=== PATIENT | male | born 1980 | race Caucasian/White ===

== ENCOUNTER 2017-11-23 19:22 | Emergency (ER) | payer BC ==
[2017-11-23] MEDS ORDERED: SODIUM CHLORIDE 0.9% 1,000 ML IV STA (20:20)
--- NOTE | 2017-11-23 20:20 | ED ---
Chest Pain HPI - General Chief Complaint: Chest Pain Stated Complaint: chest pain Time Seen by Provider: 11/23/17 19:53 Source: patient, RN notes reviewed, old records reviewed Mode of arrival: ambulatory Limitations: no limitations - History of Present Illness Initial Comments: 36-year-old male says wrist Damaris complaint of 2 weeks of having episodes of a strong heartbeat. Patient reports that he'll be sending the onset of feeling very strong heartbeat. He states that he has no specific chest pain. Denies any dizziness or lightheadedness. Denies any shortness of breath. He states that he may have had this happen past but cannot ever remember being more frequent. He reports that it is not exacerbated with ambulating.Patient denies any recent fever, chills, shortness of breath, chest pain, back pain, abdominal pain, nausea vomiting, numbness or tingling, dysuria or hematuria, constipation or diarrhea, headaches or visual changes, or any other current symptoms. Patient has a history of heart disease. Patient reports that his father has had a history of heart disease. He does have history of high blood pressure. - Related Data Home Medications Medication Instructions Recorded Confirmed Fluticasone Nasal [place] [Flonase 2 spr EA NOSTRIL DAILY PRN 11/23/17 11/23/17 Nasal [place]] Metoprolol/Hydrochlorothiazide 1 tab PO BID 11/23/17 11/23/17 [Lopressor Hct 50-25 mg Tab] Mometasone/Formoterol [Dulera 200 2 puff INHALATION RT-BID 11/23/17 11/23/17 Mcg/5 Mcg Inhaler] buPROPion XL [Wellbutrin Xl] 150 mg PO DAILY 11/23/17 11/23/17 rOPINIRole HCL [Requip] 0.25 mg PO HS 11/23/17 11/23/17 Allergies Allergy/AdvReac Type Severity Reaction Status Date / Time No Known Allergies Allergy Verified 11/23/17 20:30 Review of Systems ROS Statement: Those systems with pertinent positive or pertinent negative responses have been documented in the HPI. ROS Other: All systems not noted in ROS Statement are negative. EKG Findings - EKG Comments: EKG Findings:: EKGs shows normal sinus rhythm. Nonspecific T-wave changes. Ventricular rate of 90 bpm. FL interval 140 ms. QRS duration 90 ms. QT QTc is 364/445 ms. No evidence of ST elevation or T-wave inversion. Past Medical History Past Medical History: Asthma History of Any Multi-Drug Resistant Organisms: None Reported Past Surgical History: No Surgical Hx Reported Past Psychological History: No Psychological Hx Reported Smoking Status: Former smoker Past Alcohol Use History: Rare Past Drug Use History: None Reported General Exam - General Exam Comments Initial Comments: well-appearing alert and oriented 36-year-old male. No acute distress. Limitations: no limitations General appearance: alert, in no apparent distress Head exam: Present: atraumatic, normocephalic, normal inspection Eye exam: Present: normal appearance, PERRL, EOMI. Absent: scleral icterus, conjunctival injection, periorbital swelling ENT exam: Present: normal exam, mucous membranes moist Neck exam: Present: normal inspection. Absent: tenderness, meningismus, lymphadenopathy Respiratory exam: Present: normal lung sounds bilaterally. Absent: respiratory distress, wheezes, rales, rhonchi, stridor Cardiovascular Exam: Present: regular rate, normal rhythm, normal heart sounds. Absent: systolic murmur, diastolic murmur, rubs, gallop, clicks GI/Abdominal exam: Present: soft, normal bowel sounds. Absent: distended, tenderness, guarding, rebound, rigid Extremities exam: Present: normal inspection, full ROM, normal capillary refill. Absent: tenderness, pedal edema, joint swelling, calf tenderness Back exam: Present: normal inspection Neurological exam: Present: alert, oriented X3, CN II-XII intact Psychiatric exam: Present: normal affect, normal mood Course Vital Signs 11/23/17 11/23/17 11/23/17 19:45 20:14 22:21 Temperature 97.8 F 98.2 F Pulse Rate 90 82 Pulse Rate [ 88 Brim Raiser ] Respiratory 16 18 Rate Blood Pressure 136/76 117/64 O2 Sat by Pulse 97 96 Oximetry Chest Pain [facility] Patient is a 36 -year-old male presents to determine stay chief complaint of episodes of strong heartbeat. While patient was on the monitor he could point out that PVCs when he feels like he was having the symptoms. He had a PVC approximately one every 5 minutes. There is no specific pattern to them. Patient's troponin is negative. Chest x-rays normal. EKG is normal this time. Discussed falling up with primary care provider regards to PVCs. Discussed possibility of a Holter monitor. Discussed return parameters he has any chest pain or shortness of breath he needs to return. Patient is history plan will comply. Return parameters were discussed. 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 Patient should return to the emergency department if any alarming signs or symptoms occur. Referrals: Alfred Kurtz DO [Primary Care Provider] - 1-2 days Time of Disposition: 22:17
[2017-11-23 20:35] LABS: Basophils # (A) 0.1 k/uL (0-0.2); Basophils % (A) 1 %; Eosinophils # (A) 0.3 k/uL (0-0.7); Eosinophils % (A) 2 %; HCT 43.1 % (39.0-53.0); HGB 13.8 gm/dL (13.0-17.5); Lymphocytes # (A) 2.2 k/uL (1.0-4.8); Lymphocytes % (A) 20 %; MCH 25.5 pg (25.0-35.0); MCHC 31.9 g/dL (31.0-37.0); MCV 79.7 fL (80.0-100.0); Mean Platelet Volume 7.7; Monocytes # (A) 0.8 k/uL (0-1.0); Monocytes % (A) 7 %; Neutrophils # (A) 7.7 k/uL (1.3-7.7); Neutrophils % (A) 68 %; Platelet Count 321 k/uL (150-450); RBC 5.41 m/uL (4.30-5.90); RDW 15.2 % (11.5-15.5); WBC 11.3 k/uL (3.8-10.6)
[2017-11-23 20:44] LABS: Partial Thromboplastin Time 25.8 sec (22.0-30.0); Prothrombin Time 9.9 sec (9.0-12.0)
[2017-11-23 20:46] LABS: ALT 27 U/L (21-72); AST 25 U/L (17-59); Albumin 4.3 g/dL (3.5-5.0); Alkaline Phosphatase 68 U/L (38-126); Anion Gap 15 mmol/L; Blood Urea Nitrogen 21 mg/dL (9-20); Calcium 10.4 mg/dL (8.4-10.2); Carbon Dioxide 28 mmol/L (22-30); Chloride 98 mmol/L (98-107); Glucose 137 mg/dL (74-99); Magnesium 1.9 mg/dL (1.6-2.3); Potassium 3.5 mmol/L (3.5-5.1); Sodium 141 mmol/L (137-145); Total Bilirubin 0.3 mg/dL (0.2-1.3); Total Protein 7.7 g/dL (6.3-8.2)
--- NOTE | 2017-11-23 20:53 | XR ---
EXAMINATION: XR chest 2V DATE AND TIME: 11/23/2017 8:44 PM ORDERING PROVIDER: Kenya Levin CLINICAL INDICATION: Chest Pain TECHNIQUE: PA and lateral COMPARISON: 07/07/2016 DESCRIPTION: The lungs are clear. The pleural spaces are negative. The cardiac silhouette is not enlarged. The mediastinal and pleural silhouettes are unremarkable. The skeletal structures are intact without focal findings. The soft tissues are unremarkable. IMPRESSION: NO ACUTE PROCESS.
[2017-11-23 20:55] LABS: Creatine Kinase 98 U/L (55-170)
[2017-11-23 21:08] LABS: Creatine Kinase MB 0.4 ng/mL (0.0-2.4); Troponin I <0.012 ng/mL (0.000-0.034)
[2017-11-23 22:23] VITALS: BP 117/64; PULSE 82; RESP 18; TEMP 98.2
== END 2017-11-23 22:27 | disposition home or self-care (01) ==
LOC: EC 19:22
DX: I49.3 Ventricular premature depolarization (principal); J45.909 Unspecified asthma, uncomplicated; Z79.51 Long term (current) use of inhaled steroids; Z79.899 Other long term (current) drug therapy; Z87.891 Personal history of nicotine dependence
CPT/HCPCS: 36415; 71046; 80053; 82550; 82553; 83735; 84484; 85025; 85610; 85730; 93005; 96360; 96361; 99285

== ENCOUNTER 2020-03-26 18:11 | Emergency (ER) | payer BC ==
[2020-03-26 18:21] VITALS: BP 127/82; PULSE 93; RESP 16; TEMP 98.6
[2020-03-26] MEDS ORDERED: AMOXICILLIN 500MG STARTER PACK 3 CAP BTL PO STA (18:34)
[2020-03-26] MEDS ORDERED: dexAMETHasone 4 MG TAB PO STA (18:35)
--- NOTE | 2020-03-26 18:43 | ED ---
General Adult HPI - General Chief complaint: ENT Stated complaint: sore throat Time Seen by Provider: 03/26/20 18:28 Source: patient, RN notes reviewed Mode of arrival: ambulatory Limitations: no limitations - History of Present Illness Initial comments: Patient is a pleasant 39-year-old male presenting to the emergency Department with complaints of sore throat. Onset of symptoms was a couple of days ago. Patient takes Excedrin with mild improvement of symptoms. No difficulty in breathing. Patient has subjective fevers. No cough. - Related Data Home Medications Medication Instructions Recorded Confirmed Fluticasone Nasal [place] [Flonase 2 spr EA NOSTRIL DAILY PRN 11/23/17 11/23/17 Nasal [place]] Metoprolol/Hydrochlorothiazide 1 tab PO BID 11/23/17 11/23/17 [Lopressor Hct 50-25 mg Tab] Mometasone/Formoterol [Dulera 200 2 puff INHALATION RT-BID 11/23/17 11/23/17 Mcg/5 Mcg Inhaler] buPROPion XL [Wellbutrin Xl] 150 mg PO DAILY 11/23/17 11/23/17 rOPINIRole HCL [Requip] 0.25 mg PO HS 11/23/17 11/23/17 Previous Rx's Medication Instructions Recorded Amoxicillin 500 mg PO Q8H #30 capsule 03/26/20 Ibuprofen [Motrin] 600 mg PO Q6HR PRN #20 tab 03/26/20 Allergies Allergy/AdvReac Type Severity Reaction Status Date / Time No Known Allergies Allergy Verified 03/26/20 18:20 Review of Systems ROS Statement: Those systems with pertinent positive or pertinent negative responses have been documented in the HPI. ROS Other: All systems not noted in ROS Statement are negative. Constitutional: Reports: fever, chills Eyes: Denies: eye pain ENT: Reports: throat pain. Denies: ear pain Respiratory: Denies: cough Cardiovascular: Denies: chest pain Endocrine: Denies: fatigue Gastrointestinal: Denies: abdominal pain Genitourinary: Denies: dysuria Musculoskeletal: Denies: back pain Skin: Denies: rash Neurological: Denies: weakness Past Medical History Past Medical History: Asthma History of Any Multi-Drug Resistant Organisms: None Reported Past Surgical History: No Surgical Hx Reported Past Psychological History: No Psychological Hx Reported Past Alcohol Use History: Rare Past Drug Use History: None Reported General Exam Limitations: no limitations General appearance: alert, in no apparent distress Head exam: Present: normocephalic Eye exam: Present: normal appearance, PERRL ENT exam: Present: other (Pharyngeal erythema. Minimal purulent discharge on the right side. No uvular shift.) Neck exam: Present: tenderness (Lymphadenopathy anterior cervical), lymphadenopathy. Absent: meningismus Respiratory exam: Present: normal lung sounds bilaterally Cardiovascular Exam: Present: regular rate, normal rhythm GI/Abdominal exam: Present: soft. Absent: tenderness Neurological exam: Present: alert Psychiatric exam: Present: normal affect, normal mood Skin exam: Present: normal color Course Vital Signs 03/26/20 18:18 Temperature 98.6 F Pulse Rate 93 Respiratory 16 Rate Blood Pressure 127/82 O2 Sat by Pulse 95 Oximetry Disposition Clinical Impression: Acute pharyngitis Disposition: HOME SELF-CARE Condition: Stable Instructions (If sedation given, give patient instructions): Pharyngitis (ED) Additional Instructions: Please follow-up with primary care physician in the next day or 2 for recheck. [id number] vitamin C. Motrin as needed. Return for difficulty in breathing, uncontrolled fever, worsening or changing symptoms or other concerns. Prescription sent to [facility] in [facility] Prescriptions: Amoxicillin 500 mg PO Q8H #30 capsule Ibuprofen [Motrin] 600 mg PO Q6HR PRN #20 tab PRN Reason: Pain Is patient prescribed a controlled substance at d/c from ED?: No Referrals: Jacklyn Trujillo DO [Primary Care Provider] - 1-2 days Time of Disposition: 18:41
== END 2020-03-26 19:11 | disposition home or self-care (01) ==
LOC: EC 18:11
DX: J02.9 Acute pharyngitis, unspecified (principal); J45.909 Unspecified asthma, uncomplicated; Z79.51 Long term (current) use of inhaled steroids
CPT/HCPCS: 99282; J8540

== ENCOUNTER 2020-10-12 20:10 | Emergency (ER) | payer BC ==
[2020-10-12 20:15] VITALS: BP 152/98; RESP 18; TEMP 98.5
[2020-10-12] MEDS ORDERED: KETOROLAC 15 MG/ML 1 ML VIAL IM STA (20:35)
[2020-10-12] MEDS ORDERED: methylPREDNISolone SOD SUCCI 125 MG/2 ML VIAL IM STA (20:35)
--- NOTE | 2020-10-12 20:50 | ED ---
General Adult HPI - General Chief complaint: Extremity Problem,Nontraumatic Stated complaint: left arm pain Time Seen by Provider: 10/12/20 20:23 Source: patient, RN notes reviewed Mode of arrival: ambulatory Limitations: no limitations - History of Present Illness Initial comments: 39-year-old male with a past medical history of asthma presents to the emergency room for a chief complaint of left arm pain. Patient reports that he was at work when he went to stretch and felt a sudden pain in his left shoulder area. States it shoots down his arm. Patient states that lifting the arm greatly exacerbates his pain. He states that pressing on the area causes it to be tender. Patient denies any associated chest or back pain. Denies any nausea vomiting diaphoresis. No shortness of breath.Patient has no other complaints at this time including shortness of breath, chest pain, abdominal pain, nausea or vomiting, headache, or visual changes. - Related Data Home Medications Medication Instructions Recorded Confirmed Fluticasone Nasal [place] [Flonase 2 spr EA NOSTRIL DAILY PRN 11/23/17 11/23/17 Nasal [place]] Metoprolol/Hydrochlorothiazide 1 tab PO BID 11/23/17 11/23/17 [Lopressor Hct 50-25 mg Tab] Mometasone/Formoterol [Dulera 200 2 puff INHALATION RT-BID 11/23/17 11/23/17 Mcg/5 Mcg Inhaler] buPROPion XL [Wellbutrin Xl] 150 mg PO DAILY 11/23/17 11/23/17 rOPINIRole HCL [Requip] 0.25 mg PO HS 11/23/17 11/23/17 Previous Rx's Medication Instructions Recorded Amoxicillin 500 mg PO Q8H #30 capsule 03/26/20 Ibuprofen [Motrin] 600 mg PO Q6HR PRN #20 tab 03/26/20 Cyclobenzaprine [Flexeril] 10 mg PO TID #10 tab 10/12/20 Ibuprofen [Motrin] 600 mg PO Q6HR PRN #20 tab 10/12/20 Allergies Allergy/AdvReac Type Severity Reaction Status Date / Time No Known Allergies Allergy Verified 10/12/20 20:15 Review of Systems ROS Statement: Those systems with pertinent positive or pertinent negative responses have been documented in the HPI. ROS Other: All systems not noted in ROS Statement are negative. Past Medical History Past Medical History: Asthma History of Any Multi-Drug Resistant Organisms: None Reported Past Surgical History: No Surgical Hx Reported Past Psychological History: No Psychological Hx Reported Smoking Status: Current some day smoker Past Alcohol Use History: Occasional Past Drug Use History: None Reported General Exam Limitations: no limitations General appearance: alert, in no apparent distress Head exam: Present: atraumatic Eye exam: Present: normal appearance, PERRL, EOMI. Absent: scleral icterus ENT exam: Present: normal exam, mucous membranes moist Neck exam: Present: normal inspection, full ROM. Absent: tenderness Respiratory exam: Present: normal lung sounds bilaterally. Absent: respiratory distress, wheezes Cardiovascular Exam: Present: regular rate, normal rhythm, normal heart sounds GI/Abdominal exam: Present: soft, normal bowel sounds. Absent: distended, tenderness, guarding, rebound, rigid Extremities exam: Present: tenderness (Tenderness to the posterior shoulder.), normal capillary refill (Capillary refill less than 2 seconds, radial pulse 2+ in the left upper extremity.). Absent: full ROM (Patient only able to flex and abduction to the left shoulder to 90 before having significant pain. Touching the right shoulder with his left hand causes pain as well. Patient is able to move all fingers, make okay sign, abductor fingers, and flex and extend wrist) Course Vital Signs 10/12/20 20:12 Temperature 98.5 F Pulse Rate 87 Respiratory 18 Rate Blood Pressure 152/98 O2 Sat by Pulse 98 Oximetry EKG Findings - EKG Comments: EKG Findings:: Normal sinus rhythm, ventricular rate 94, Pr int 136, QTc 447 Medical Decision Making - Medical Decision Making Vitals are stable. HPI physical exam is documented. Patient has pain which is reproducible in the posterior left shoulder. This started after he was stretching at work. Pain worsens with movement of the shoulder. Patient unable to Abduct or flex arm to 90. Neurovascular status intact in the left upper extremity. Radial pulse 2+. After the shoulder was obtained which showed no acute osseous abnormality. The visualized lung is clear. Patient was given Toradol. He does not want any additional pain medication. Patient's pain is consistent with a musculoskeletal arm pain. He'll be discharged home with Motrin and Tylenol 3. He will also be given Flexeril. He will follow-up with his doctor. He'll return for any worsening symptoms. I discussed this case with attending Dr. Garcia who agrees with this assessment and treatment plan. Disposition Clinical Impression: Shoulder pain, left Disposition: HOME SELF-CARE Condition: Good Additional Instructions: Please take Motrin and Tylenol for pain. If pain is severe take Tylenol 3. Take Flexeril as needed as well. He cannot drive or operative machinery while taking Tylenol 3 or Flexeril. Follow-up with orthopedics. Return to the emergency room for worsening symptoms. Prescriptions: Cyclobenzaprine [Flexeril] 10 mg PO TID #10 tab Ibuprofen [Motrin] 600 mg PO Q6HR PRN #20 tab PRN Reason: Pain Is patient prescribed a controlled substance at d/c from ED?: No Referrals: Jacklyn Trujillo DO [Primary Care Provider] - 1-2 days Rojas Ramírez DO [Doctor of Osteopathic Medicine] - 1-2 days Time of Disposition: 22:13
--- NOTE | 2020-10-12 20:57 | XR ---
Result: Clinical History: Pain. Comparison: None available. Technique: 3 views of the left shoulder. Findings: The bone mineralization is appropriate for age. No acute fracture or dislocation is seen. The acromioclavicular and glenohumeral joints are preserve d . The humeral head is well-seated in the glenoid. The visualized lung is clear. Impression: No acute osseous abnormality.
[2020-10-12] MEDS ORDERED: ACET/COD 300 MG/30 MG STARTER PACK 6 TAB BTL PO STA (22:14)
[2020-10-12 22:37] VITALS: PULSE 79
== END 2020-10-12 22:32 | disposition home or self-care (01) ==
LOC: EC 20:10
DX: M25.512 Pain in left shoulder (principal); M79.602 Pain in left arm; J45.909 Unspecified asthma, uncomplicated; F17.200 Nicotine dependence, unspecified, uncomplicated; Z79.51 Long term (current) use of inhaled steroids; Z79.899 Other long term (current) drug therapy
CPT/HCPCS: 93005; 73030; 99283; 96372 ×2; J2930; J1885